=== PATIENT | female | born 1990 | race Caucasian/White ===

== ENCOUNTER 2017-03-07 13:05 | Emergency (ER) | payer OTHER ==
[2017-03-07] MEDS ORDERED: NS 1,000 ML IV ONE (13:12)
[2017-03-07] MEDS ORDERED: LORazepam 2 MG/ML INJ IVP ONE (13:13)
[2017-03-07] MEDS ORDERED: LORazepam 2 MG/ML INJ ONE (13:14)
[2017-03-07] MEDS ORDERED: ONDANSETRON 4 MG/2 ML VIAL ONE (13:26)
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
[2017-03-07] MEDS ORDERED: TDAP ADULT 0.5 ML INJ (BOOSTRIX) IM ONE (14:27)
[2017-03-07 17:00] VITALS: BP 113/76; PULSE 67; TEMP 98.1; O2SAT 97
== END 2017-03-07 17:00 | disposition home or self-care (01) ==
PROC: 0HQHXZZ Repair Right Upper Leg Skin, External Approach (ICD-10-PCS; principal; 2017-03-07)
DX: S62.616A Displaced fracture of proximal phalanx of right little finger, initial encounter for closed fracture (principal); S81.811A Laceration without foreign body, right lower leg, initial encounter; E86.9 Volume depletion, unspecified; Z23 Encounter for immunization; V13.4XXA Pedal cycle driver injured in collision with car, pick-up truck or van in traffic accident, initial encounter
CPT/HCPCS: 96374; J2060; J2405